=== PATIENT | male | born 1995 | race Caucasian/White ===

== ENCOUNTER → 2021-10-21 | Outpatient (CLI) | payer SELFPAY ==
--- NOTE | 2021-10-21 11:10 | US ---
EXAMINATION TYPE: US scrotum with doppler. DATE OF EXAM: 10/21/2021 COMPARISON: 10/10/2021 CLINICAL HISTORY: 26-year-old male N50.89 SCROTAL SWELLING AND PAIN. Follow up, 4-5 weeks ago patient injected each testicle with CBD massage oil, swelling x 11 days, patient states no pain TECHNIQUE: Grayscale and color Doppler Duplex imaging performed of the scrotum. FINDINGS: EXAM MEASUREMENTS: TESTICLES: Right Testicle: 4.9 x 2.5 x 3.3 cm - 1.6 x 1.6 x 1.3cm mildly complex cystic lesion with surrounding echogenicity and hyperemia. Left Testicle: 4.6 x 2.6 x 3.0 cm - 1.6 x 1.1 x 1.6cm mildly complex cystic lesion with surrounding echogenicity and hyperemia. Both intratesticular collections are relatively stable in size. The degree of hyperemia of the left t esticle seems to have shown some improvement. Doppler performed to assess for testicular vascularity; good bilateral color flow and waveforms are s een. There is no evidence of testicular torsion. EPIDIDYMIS HEAD: Right Epididymis: 1.3 cm Left Epididymis: 1.3 cm Presence of hydroceles: 5.8cm loculated complex collection around left testicle. Some of the areas h ave become more cystic compared to prior exam. However, it appears to have enlarged in the interval. Presence of varicoceles: no IMPRESSION: 1. Focal fluid collections within each testicle measuring up to 1.6 cm likely relating to the sites o f CBD oil injection. The surrounding echogenicity is also similar, probably surrounding parenchymal h emorrhage. Patient is at risk for development of intratesticular abscess. 2. While the hyperemia of the left testicle seems to have improved, the large complex hydrocele of th e left testicle seems to be larger. Infected hydrocele with complex abscess not excluded.
== END | disposition home or self-care (01) ==
LOC: RADUSWWP 09:38
PROVIDERS: ATTEND Urology
DX: R68.89 Other general symptoms and signs (principal)
CPT/HCPCS: 76870; 93975